=== PATIENT | male | born 1960 | race Caucasian/White ===

== ENCOUNTER 2019-05-17 03:18 | Inpatient (IN) ==
[2019-05-17] MEDS ORDERED: ONDANSETRON INJ 2 MG/ML 2 ML VIAL IV STA (03:42)
[2019-05-17] MEDS ORDERED: SODIUM CHLORIDE 0.9% 1000ML 1,000 ML IV ONE ×2 (03:42→04:54)
[2019-05-17] MEDS ORDERED: HYDROmorphone INJ 1 MG/ML SYRINGE IV STA (03:42)
[2019-05-17] MEDS ORDERED: KETOROLAC 30 MG/ML VIAL IV STA (03:42)
[2019-05-17 03:54] LABS: Basophils # (auto) 0.02 K/uL (0-0.2); Basophils % (auto) 0.2 %; Eosinophils # (auto) 0.41 K/uL (0-0.5); Eosinophils % (auto) 3.7 %; Hematocrit (blood only) 44.8 % (42-52); Hemoglobin 15.4 g/dL (14.0-18.0); Immature Granulocytes # (auto) 0.03 K/uL (0.00-0.02); Immature Granulocytes % (auto) 0.3 %; Lymphocytes # (auto) 2.78 K/uL (1.2-3.4); Lymphocytes % (auto) 24.8 %; Mean Corpuscular Hgb Conc 34.4 g/dL (32-36); Mean Corpuscular Volume 90.7 fL (80-100); Mean Platelet Volume 10.3 fL (7.4-10.4); Monocytes # (auto) 0.92 K/uL (0.11-0.59); Monocytes % (auto) 8.2 %; Neutrophils # (auto) 7.05 K/uL (1.4-6.5); Neutrophils % (auto) 62.8 %; Platelet Count 225 K/uL (130-400); RDW Coefficient of Variation 12.5 % (11.5-14.5); RDW Standard Deviation 41.6 fL (36.4-46.3); Red Blood Count 4.94 M/uL (4.7-6.1); White Blood Count 11.21 K/uL (4.8-10.8)
[2019-05-17 04:12] LABS: Calcium 8.8 mg/dl (8.5-10.1); Creatinine Clr Calc Pharmacy 70.1 ml/min; Est GFR (African American) 72.2; Est GFR (Non-African American) 62.3; Potassium 3.5 mmol/L (3.5-5.1)
[2019-05-17 04:14] LABS: Appearance Urine Clear (Clear); Bilirubin Urine Negative (Negative); Blood Urine Negative (Negative); Color Urine Yellow; Glucose Urine UA Negative (Negative); Ketones Urine Trace (Negative); Leukocyte Esterase Urine Negative (Negative); Nitrite Urine Negative (Negative); Protein Urine Negative (Negative); Specific Gravity Urine 1.028 (1.000-1.030); Urobilinogen Urine Negative (Negative)
--- NOTE | 2019-05-17 06:30 | XRay Report ---
KUB HISTORY: Acute left flank pain left flank pain, h/o stones COMPARISON: Renal ultrasound of same day FINDINGS: The bowel gas pattern is non-obstructive. Moderate volume of formed stool about the ascendi ng colon and hepatic flexure. There is no organomegaly. 5 mm calculus of the inferior pole left kidn ey. The right renal shadow is mostly obscured by bowel gas. No definite ureteral calculi identified. There are a few left-sided pelvic basin calcifications noted measuring up to 3 mm suggestive of proba ble phleboliths. No pneumoperitoneum or pneumatosis. No fracture. IMPRESSION: Left nephrolithiasis without ureteral calculi identified. Electronically signed by: Keven Prasad M.D. 05/17/2019 6:28 AM
[2019-05-17] MEDS ORDERED: MoRPHine SULFATE 4 MG/ML 1 ML CARP\\VIAL IV PRN (06:38)
[2019-05-17] MEDS ORDERED: ONDANSETRON INJ 2 MG/ML 2 ML VIAL IV PRN ×2 (06:38→16:28)
--- NOTE | 2019-05-17 06:42 | Ultrasound Report ---
US renal/blad retro comp HISTORY: 59 years-old Male left flank pain h/o stones acute left-sided flank pain COMPARISON: KUB of same day TECHNIQUE: Multiple real-time sonographic images of the kidneys and urinary bladder were obtained ass essing grayscale appearance, color and spectral flow FINDINGS: The right kidney measures 12.3 x 5.2 x 5.0 cm. Cyst of the superior pole right kidney measures 2.4 x 2.0 x 2.5 cm. Linear area of increased echogenicity is noted along the dependent aspect of this lesio n. No right-sided hydronephrosis or renal calculi identified. Decompressed urinary bladder. Mild to moderate left-sided hydronephrosis with a 1.2 cm echogenicity noted at the level of the urete ropelvic junction. No suspicious mass lesions of the left kidney. IMPRESSION: 1. Mild to moderate left-sided hydronephrosis with 1.2 cm echogenicity of the ureteropelvic junction suggestive of obstructing calculus. 2. 2.5 cm cyst of the superior pole right kidney demonstrates linear increased echogenicity dependent ly suggestive of mild debris or thin internal septation. The above report was generated using voice recognition software. It may contain grammatical, syntax o r spelling errors. Electronically signed by: Keven Prasad M.D. 05/17/2019 6:40 AM
--- NOTE | 2019-05-17 06:45 | Emergency Department Note ---
Entered by Juan Francisco Art acting as a scribe for ED Provider Note Name: Chacorta Bowles Age: 59, male Arrives Via: Walk in Informant: Patient CC: Left flank pain HPI: The patient is a 59 year old male who presents to the emergency department with complaints of constant left flank pain beginning at 2200 yesterday. The patient states that he has a history of previous kidney stones. He notes that his last kidney stone was 8 months ago. He reports that his previous stones are typically small, but he states that he has had to have a lithotripsy once in the past. He notes that his left flank pain radiates into his groin. He also complains of mild nausea but he denies any vomiting. He reports that he is currently on doxycycline for a sinus infection. The patient states that that he was not started on any steroids. ROS: See above HPI for pertinent positives & negatives. A total of 10 systems reviewed and were otherwise negative. Past Medical History: Sinus infection, kidney stone Past Surgical History: Previous lithotripsy Family History: No significant family history Social History: Never smoker, lives with family Home Medications: Doxycycline Allergies: None Physical: Vitals: BP 134/83, Pulse 96 H, Resp 18, Temp 97.5 F L, O2 Sat 91 Exam: GENERAL: Patient is uncomfortable appearing and in moderate distress. EYES: No scleral icterus, unremarkable pupils. ENT: Mucous membranes moist, no nasal congestion. NECK: No masses appreciated, no meningismus, trachea is midline. RESPIRATORY: No dyspnea. Clear to auscultation and equal bilaterally. No wheeze, no rhonchi. CARDIOVASCULAR: Regular rate and rhythm. No murmurs, rubs, gallops appreciated. GASTROINTESTINAL: Abdomen soft, non-tender, no peritonitis. Bowel sounds posit cherrie. No masses appreciated. BACK: No midline tenderness. Vague left CVA tenderness to palpation. EXTREMITIES: Normal motion all extremities, no cyanosis, no edema. NEUROLOGIC: Alert and oriented, no acute motor or sensory deficits, no focal weakness, cranial nerves grossly intact. SKIN: No rash, no jaundice, no diaphoresis. ED Course: Prior Medical Record, Triage/Nursing Notes, Medications, Allergies reviewed by Me 0333: The patient was evaluated in room B12. A complete history and physical exam was performed. 0452: I reevaluated and updated the patient. He states that he is lightheaded. He is mildly diaphoretic on exam. His pain has improved. 0520: Dr. Deirdre Curtis, was paged. 0521: I discussed the patient's case with Dr. Deirdre Curtis. He agrees that the stone will likely not pass. He suggests hospitalist evaluation. He notes that the patient will go to the OR later today. 0526: I rechecked the patient. 0533: Upon reevaluation, the patient is stable. I discussed the findings and the treatment plan with the patient. He expresses agreement and understanding. I spoke with Dr. Parra of the [facility]. The patient will be evaluated for further management. Vital Signs: reviewed and remarkable for wnl Labs: Reviewed and remarkable for wnl, no blood in UA Interventions: Saline Lock, Dilaudid 1mg IV, Toradol 30mg IV, Zofran 4mg IV, NSS Bolus 1 L IV Imaging: X ray results are stated below per my interpretation: KUB: 1 view: No infiltrate, no effusion, normal cardiac border. Radiology results as stated below per my review and the radiologist's interpretation: US RENAL: Moderate left pelviectasis with abrupt off suggested at the UPJ. An echogenic region is suggested at the UPJ measuring 1.2 cm and is presumed to be the calcific density noted in the left abdomen on the plain radiograph. The right kidney demonstrates no calcifications or hydronephrosis. Incidental cortical cyst measuring 2.4 x 2 x 2.5 cm. The bladder is decompressed, limiting evaluation. Radiologist: Abdiaziz Uriarte MD. Consults: 0521: I discussed the patient's case with Dr. Deirdre Curtis. He agrees that the stone will likely not pass. He suggests hospitalist evaluation. He notes that the patient will go to the OR later today. 0533: I reviewed the patient's case with Dr. Parra - [facility]. He will evaluate the patient for further management. Blood pressure: Normal. No Referral necessary Disposition: Hospitalization Differentials: Etiologies such as shingles, pyelonephritis/UTI, renal colic, appendicitis, diverticulitis, mesenteric ischemia, torsion, aortic pathology, infections, inflammatory bowel disease, bowel obstruction, PUD, biliary pathology, as well as others were entertained. Medical Decision Makin yr old male arrives with left flank pain. Quite uncomfortable on arrival and vastly improved with above meds. UA without blood though with obstructing UPJ stone 1.2cm and hydro this is renal related. He is not currently septic. Reviewed with Uro and unlikely to pass this stone. Hospitalized for further management. Impression: Left kidney stone, left hydronephrosis Rick Noe MD The scribe's documentation has been prepared under my direction and personally reviewed by me in its entirety. I confirm that the note above accurately reflects all work, treatment, procedures, and medical decision making performed by me. Impression & Plan Kidney stone on left side, Hydronephrosis, left Past Med/Surg History Medical History Kidney stone Sinus infection Family History Other No significant family history Social History Preferred Language: B[place] Feels Safe at Home: Yes Smoking Status: Never smoker Results & Data Vital Signs Vital Signs - 24 hr 05/17/19 03:27 05/17/19 04:36 05/17/19 05:29 Temperature 36.4 C L Temperature Source Oral Sepsis Recent Fever Within 48 Hours No Sepsis New/Unexplained Change in Mental Status No Sepsis Action Taken by Nursing No Action Required Pulse Rate 89 Pulse Rate [Right Finger] 96 H 97 H Respiratory Rate 36 H 18 20 Blood Pressure 144/85 H Blood Pressure [Left Arm] 134/83 108/65 Blood Pressure Mean 104 Blood Pressure Mean [Left Arm] 100 79 Pulse Oximetry 96 91 97 Oxygen Delivery Method Room Air Room Air Home Medications Current Medication List: was personally reviewed by me Laboratory Data Attestation: I reviewed the patient's lab results. Result diagrams: 05/17/19 03:42 05/17/19 03:42 Lab Results 05/17/19 05/17/19 05/17/19 Range/Units 03:42 03:42 03:42 WBC 11.21 H (4.8-10.8) K/uL RBC 4.94 (4.7-6.1) M/uL Hgb 15.4 (14.0-18.0) g/dL Hct 44.8 (42-52) % MCV 90.7 (80-100) fL MCH 31.2 (25-34) pg MCHC 34.4 (32-36) g/dL RDW Std Deviation 41.6 (36.4-46.3) fL RDW Coeff of Holli 12.5 (11.5-14.5) % Plt Count 225 (130-400) K/uL MPV 10.3 (7.4-10.4) fL Immature Gran % (Auto) 0.3 % Neut % (Auto) 62.8 % Lymph % (Auto) 24.8 % Creek % (Auto) 8.2 % Eos % (Auto) 3.7 % Baso % (Auto) 0.2 % Immature Gran # (Auto) 0.03 H (0.00-0.02) K/uL Neut # (Auto) 7.05 H (1.4-6.5) K/uL Lymph # (Auto) 2.78 (1.2-3.4) K/uL Creek # (Auto) 0.92 H (0.11-0.59) K/uL Eos # (Auto) 0.41 (0-0.5) K/uL Baso # (Auto) 0.02 (0-0.2) K/uL Sodium 141 (136-145) mmol/L Potassium 3.5 (3.5-5.1) mmol/L Chloride 108 H (98-107) mmol/L Carbon Dioxide 26 (21-32) mmol/L Anion Gap 7.0 (3-11) BUN 19 H (7-18) mg/dl Creatinine 1.27 (0.6-1.4) mg/dl Est Cr Clr Drug Dosing 70.1 ml/min Est GFR ( Amer) 72.2 Est GFR (Non-Af Amer) 62.3 BUN/Creatinine Ratio 15.0 (10-20) Glucose 108 H (70-99) mg/dl Calcium 8.8 (8.5-10.1) mg/dl Urine Color Yellow Urine Appearance Clear (Clear) Urine pH 6.0 (4.5-7.5) Ur Specific [place] 1.028 (1.000-1.030) Urine Protein Negative (Negative) Urine Glucose (UA) Negative (Negative) Urine Ketones Trace H (Negative) Urine Blood Negative (Negative) Urine Nitrite Negative (Negative) Urine Bilirubin Negative (Negative) Urine Urobilinogen Negative (Negative) Ur Leukocyte Esterase Negative (Negative) Administered Medications Discontinued Medications Hydromorphone HCl (Dilaudid) 1 mg IV NOW STA Stop: 05/17/19 03:43 Last Admin: 05/17/19 03:46 Dose: 1 mg Documented by: [id number] Sodium Chloride (Nss 1000ml) 1,000 mls @ 999 mls/hr IV .Q1H1M ONE Stop: 05/17/19 04:42 Last Infusion: 05/17/19 04:37 Dose: 0 mls/hr Documented by: [id number] Admin: 05/17/19 03:46 Dose: 999 mls/hr Documented by: [id number] Sodium Chloride (Nss 1000ml) 1,000 mls @ 999 mls/hr IV .Q1H1M ONE Stop: 05/17/19 05:54 Last Infusion: 05/17/19 05:51 Dose: 0 mls/hr Documented by: [id number] Admin: 05/17/19 05:07 Dose: 999 mls/hr Documented by: [id number] Ketorolac Tromethamine (Toradol) 30 mg IV NOW STA Stop: 05/17/19 03:43 Last Admin: 05/17/19 03:46 Dose: 30 mg Documented by: [id number] Ondansetron HCl (Zofran) 4 mg IV NOW STA Stop: 05/17/19 03:43 Last Admin: 05/17/19 03:46 Dose: 4 mg Documented by: [id number] Discharge Plan Visit Data Chief Complaint: Kidney Stone Stated Complaint: KIDNEY STONE ED Provider: Rick Noe Discharge Problem: Kidney stone on left side, Hydronephrosis, left Patient Disposition: Being Evaluated by Hospitalist Discharge Instructions Interventions: ED Discharge Assessment Last Done: 05/17/19 06:22 The scribe's documentation has been prepared under my direction and personally reviewed by me in its entirety. I confirm that the note above accurately reflects all work, treatment, procedures, and medical decision making performed by me.
[2019-05-17] MEDS: SODIUM CHLORIDE 0.9% 1000ML 1,000 ML IV SCH ×2 (06:47→14:07)
--- NOTE | 2019-05-17 09:24 | History and Physical Report ---
DATE OF ADMISSION: 05/17/2019 CHIEF COMPLAINT: Left renal colic. HISTORY OF PRESENT ILLNESS: This is a 59-year-old male with past medical history significant for history of kidney stones, no other significant past medical history, who presents with severe left flank pain started at 10 p.m. last night, it was very severe, 10/10 in severity, he had a history of kidney stones, he came to the ER and imaging studies showed about 1 cm obstructing left renal stone. He denies any fever, chills. No nausea, no chest pain, no shortness of breath, no cough, no headache, no blurred vision, no sore throat, no difficulty swallowing. Appetite is okay.No burning micturition or hematuria. No constipation or diarrhea. Currently resting comfortable and hemodynamically stable. His white count is slightly high. Otherwise, hemodynamically stable. ER physician notified the urology. ALLERGIES: No known drug allergies. PAST MEDICAL HISTORY: As above. PAST SURGICAL HISTORY: Ureteral stent for kidney stone. MEDICATIONS: None. FAMILY HISTORY: Father had pancreatic cancer. Mother had MS. SOCIAL HISTORY: Denies smoking; alcohol rarely. No drug use. The patient is from [place], visiting [facility] for conference. REVIEW OF SYMPTOMS: As per HPI. Rest of review of symptoms is negative. PHYSICAL EXAMINATION: GENERAL: The patient is of moderate build, not in acute distress. VITAL SIGNS: Temperature 36.4, pulse 97, respiratory rate 20, blood pressure 108/65, oxygen 97% on room air. HEENT: No pallor, no icterus. Pupils equal, round, and reactive to light. NECK: No JVD. No neck masses, no carotid bruit. CARDIOVASCULAR: S1, S2 heard, regular rate and rhythm, no murmur, no gallop. RESPIRATORY SYSTEM: Normal AP diameter. No accessory muscle use. No wheezing, no crackles. ABDOMEN: Soft, bowel sounds present. Nontender. No CVA tenderness, no guarding, no rigidity. CENTRAL NERVOUS SYSTEM: Cranial nerves II-XII grossly intact. Nonfocal. EXTREMITIES: No edema, no erythema. LABORATORY DATA: WBC 11.2, hemoglobin 15.4, hematocrit 44.8, platelets 225. Sodium 141, potassium 3.5, chloride 108, bicarbonate 26, BUN 19, creatinine 1.2, serum glucose 108, calcium 8.8. Urinalysis: Trace ketones. KUB, x-ray and renal ultrasound official reading pending. ASSESSMENT AND PLAN: This is a 59-year-old male who presents with left renal colic. 1. Left renal colic with obstructing left kidney stone. The patient has a history of renal stone in the past and stent in the past, afebrile, hemodynamically stable, mild leukocytosis. Urinalysis negative. Urology notified by the ER. We will keep him n.p.o., IV fluids, IV pain medication, IV antiemetics p.r.n. Monitor in the medical floor. 2. Deep venous thrombosis prophylaxis, SCDs. 3. Disposition: Admit to medical floor. Expect discharge home and follow with his family doctor. Level 1 full code. MTDD
[2019-05-17] MEDS ORDERED: TAMSULOSIN HCL 0.4 MG CAP PO SCH ×2 (09:30→21:00)
--- NOTE | 2019-05-17 10:16 | Anesthesiology Consultation ---
Date of Service May 17, 2019 Assessment & Plan (1) Encounter for pre-operative examination: Chart Review Chart Review: Acceptable Risk for Surgery and Patient NOT seen in Pre Admission Testing Consults Requested none History Surgery Operation Date: 05/17/19 07:00 Proposed Procedures p Cystoscopy, Left Stent Placement - Trina Bettencourt MD Height/Weight Height: 5 ft 9 in Weight: 90.5 kg Allergies Allergy/AdvReac Type Severity Reaction Status Date / Time Penicillins Allergy Unknown Verified 05/17/19 06:19 Sulfa (Sulfonamide Allergy Unknown Verified 05/17/19 06:19 Antibiotics) Medications Home Medications Medication Instructions Recorded Confirmed Last Taken cetirizine [Zyrtec] 10 mg PO DAILY 05/17/19 05/17/19 05/16/19 fluticasone propionate 2 spray INTRANASAL DAILY 05/17/19 05/17/19 05/16/19 omeprazole magnesium [Prilosec OTC] 20 mg PO DAILY 05/17/19 05/17/19 05/16/19 Active Medications Generic Name Dose Route Start Last Admin Trade Name Freq PRN Reason Stop Dose Admin Sodium Chloride 1,000 mls @ 125 mls/hr 05/17/19 06:38 05/17/19 06:47 Nss 1000ml IV 06/16/19 06:37 125 mls/hr .Q8H GABY Administration Morphine Sulfate 3 mg 05/17/19 06:38 05/17/19 06:53 Morphine Sulfate IV 05/31/19 06:37 3 mg Q3H PRN Administration Pain Ondansetron HCl 4 mg 05/17/19 06:38 05/17/19 06:53 Zofran IV 06/16/19 06:37 4 mg Q6H PRN Administration Nausea Tamsulosin HCl 0.4 mg 05/17/19 09:30 05/17/19 09:50 Flomax PO 06/16/19 09:29 Not Given DAILY GABY Past Medical History Medical History Kidney stone Sinus infection on doxycycline Past Family History Family History Other No significant family history Past Surgical History Surgical History H/O lithotripsy Social History Smoking Status: Never smoker Do You Dip or Chew Tobacco: No Hx Alcohol Use: Yes Alcohol type: beer, wine and hard liquor alcohol intake frequency: holidays/special occasions only Hx Substance Use: No Physical Exam Vital Signs Last Vital Signs Temp 36.2 C L 05/17/19 06:38 Pulse 97 H 05/17/19 06:38 Resp 18 05/17/19 06:38 BP 117/77 05/17/19 06:38 Pulse Ox 97 05/17/19 06:38 Testing Laboratory Results 05/17/19 03:42 05/17/19 03:42 Urine Color Yellow 05/17/19 03:42 Urine Appearance Clear (Clear) 05/17/19 03:42 Urine pH 6.0 (4.5-7.5) 05/17/19 03:42 Ur Specific [place] 1.028 (1.000-1.030) 05/17/19 03:42 Urine Protein Negative (Negative) 05/17/19 03:42 Urine Glucose (UA) Negative (Negative) 05/17/19 03:42 Urine Ketones Trace (Negative) H 05/17/19 03:42 Urine Nitrite Negative (Negative) 05/17/19 03:42 Ur Leukocyte Esterase Negative (Negative) 05/17/19 03:42
[2019-05-17] MEDS ORDERED: FLUTICASONE PROPIONATE NA SPR 16 GM BTL NAE SCH (10:45)
[2019-05-17] MEDS ORDERED: PANTOprazole 40 MG TAB PO SCH (11:00)
--- NOTE | 2019-05-17 11:19 | Hospitalist Progress Note ---
Date of Service May 17, 2019 Assessment & Plan (1) Renal colic on left side: Pain is controlled with morphine. Oral pain medications offered but patient declined as he does not like the effect of these medications on an empty stomach. Urology is consulted and will discuss treatment options with him today. He has a history of nephrolithiasis and did note his own personal stash of Flomax. He reports taking Flomax last night at home. This was continued at bedtime. Continue IV fluids. (2) Sinus infection: Recently diagnosed as outpatient and he was on doxycycline twice daily. We will continue this in IV form now as he is declining p.o. meds while n.p.o. Continue home Flonase. (3) GERD (gastroesophageal reflux disease): Continue PPI per home regimen. (4) DVT prophylaxis: SCDs in setting of upcoming possible procedure today Full code Disposition-pending urology recommendations Barbara Triana DO [facility] Subjective 59-year-old man with history of nephrolithiasis presented with acute left flank pain was found to have a 1.2 cm obstructing UPJ stone. Pain is well controlled with morphine overnight. He was offered oral pain meds but states that while being n.p.o. this will mess with his stomach. He was incidentally diagnosed with a acute sinus infection in the last 1 to 2 days. He was placed on doxycycline and would like to continue this now. He states he does not do well with oral medications well on an empty stomach so will offer him IV. Discussed home medications with him an updated med reconciliation. At this time he is in a conference at [facility], visiting from [facility]. He is set to fly out sometime this week and is questioning whether or not to get definitive therapy here or at his home. He will discuss this further with urology. Furthermore he has an upcoming vacation in approximately 12 days and he has postoperative concerns, understandably. Currently denies any nausea, gross hematuria, fevers, chills. He has no chest pain, flank pain is controlled, no shortness of breath present. Review of Systems Review of Systems: All systems reviewed & are unremarkable except as noted in HPI & below Physical Exam 2 Physical Exam: CONSTITUTIONAL: WNWD, vitals as above, generally well- appearing EYES: normal conjuctivae, no scleral icterus ENT: oropharynx clear, no maxillary or ethmoid sinus tenderness NECK: trachea midline RESPIRATORY: clear to auscultation bilaterally, no crackles, rales or wheezes, normal respiratory effort CARDIOVASCULAR: regular rate and rhythm, S1 and 2 heard without murmurs, gallops or rubs, no JVD, no peripheral edema GASTROINTESTINAL: soft, nontender, nondistended MUSCULOSKELETAL: strength 5/5 throughout, head is normocephalic and atraumatic SKIN: warm and dry NEUROLOGIC: CN 2-12 grossly intact, no sensory deficit, normal cognition, normal speech, no gross focal deficits. PSYCHIATRIC: alert cooperative and oriented to person, place and time. Results & Data Vital Signs (Past 12 Hours) Vital Signs Temp Pulse Pulse Resp BP BP Pulse Ox 05/17/19 06:38 36.2 C L 97 H 18 117/77 97 05/17/19 06:21 103 H 20 96/57 L 97 05/17/19 05:29 97 H 20 108/65 97 05/17/19 04:36 96 H 18 134/83 91 05/17/19 03:27 36.4 C L 89 36 H 144/85 H 96 Laboratory Results Short CBC 05/17/19 Range/Units 03:42 WBC 11.21 H (4.8-10.8) K/uL Hgb 15.4 (14.0-18.0) g/dL Hct 44.8 (42-52) % Plt Count 225 (130-400) K/uL BMP 05/17/19 03:42 Sodium 141 Potassium 3.5 Chloride 108 H Carbon Dioxide 26 BUN 19 H Creatinine 1.27 Glucose 108 H Calcium 8.8 Urine 05/17/19 Range/Units 03:42 Urine Color Yellow Urine Appearance Clear (Clear) Urine pH 6.0 (4.5-7.5) Ur Specific [place] 1.028 (1.000-1.030) Urine Protein Negative (Negative) Urine Glucose (UA) Negative (Negative) Medications Administered Current Inpatient Medications Acetaminophen (Tylenol) 650 mg PO Q4H PRN PRN Reason: pain/fever Stop: 06/16/19 06:37 Fluticasone Propionate (Flonase) 2 sprays SENIA DAILY GABY Stop: 06/16/19 10:44 Sodium Chloride (Nss 1000ml) 1,000 mls @ 125 mls/hr IV .Q8H GABY Stop: 06/16/19 06:37 Last Admin: 05/17/19 06:47 Dose: 125 mls/hr Documented by: Doxycycline Hyclate 100 mg/ (Dextrose) 110 mls @ 50 mls/hr IV BID GABY Stop: 05/27/19 10:59 Morphine Sulfate (Morphine Sulfate) 3 mg IV Q3H PRN PRN Reason: Pain Stop: 05/31/19 06:37 Last Admin: 05/17/19 06:53 Dose: 3 mg Documented by: Ondansetron HCl (Zofran) 4 mg IV Q6H PRN PRN Reason: Nausea Stop: 06/16/19 06:37 Last Admin: 05/17/19 06:53 Dose: 4 mg Documented by: Pantoprazole Sodium (Protonix) 40 mg PO DAILY GABY Stop: 06/16/19 10:59 Tamsulosin HCl (Flomax) 0.4 mg PO HS GABY Stop: 06/16/19 20:59
[2019-05-17] MEDS: DOXYCYCLINE HYCLATE 100 MG in DEXTROSE 5% 100 ML IV SCH ×2 (11:49→20:01)
[2019-05-17] MEDS ORDERED: MIDAZOLAM HCL 1 MG/ML 2ML VIAL ONE (16:16)
[2019-05-17] MEDS ORDERED: fentaNYL citrate 100 MCG/2 ML VIAL ONE (16:16)
[2019-05-17] MEDS ORDERED: OXYMETAZOLINE 0.05% 30 ML BTL STA (16:27)
[2019-05-17] MEDS ORDERED: ePHEDrine sulfate 50 MG/ML AMP IV PRN (16:28)
[2019-05-17] MEDS ORDERED: ATROPINE SULFATE 0.1 MG/ML 10ML SYR IV PRN (16:28)
[2019-05-17] MEDS ORDERED: fentaNYL citrate 100 MCG/2 ML VIAL IV PRN (16:28)
[2019-05-17] MEDS ORDERED: OXYMETAZOLINE 0.05% 30 ML BTL ONE (16:29)
[2019-05-17] MEDS ORDERED: GENTAMICIN CONSULT ACTIVE PRN (16:50)
[2019-05-17] MEDS ORDERED: GENTAMICIN SULFATE 40 MG/ML 20 ML VIAL IV STA (16:50)
--- NOTE | 2019-05-17 16:56 | Urology Consultation ---
Date of Consultation May 17, 2019 Assessment & Plan (1) Renal colic on left side: 12mm left upj stone I suspect it is tipping in and out of upj and kidney. Offered observation stent uscope with laser litho he opts for stent I am uncertain why he had such terrible bleeding after last stent so will carefully place a flexible cystoscope this time. 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 He has had many stones and began with classic left renal colic. He had pain meds in ER and has been pain free since. He has KUB which did not show any stone at the upj and a small sotne in the left lower pole. He had an ultrasound which showed left hydronephrosis and a 12mm left upj stone. He has had other stones and has passed most. He had a stent placed once 5 years ago and had brisk hematuria for day, was on CBI and needed 2 units blood transfusion. He never did get an explanation for that. He does not bleed excessively in daily life. Had face an dtoe skin lesions removed with a free flap graft to toe. no problems Allergies Allergy/AdvReac Type Severity Reaction Status Date / Time Penicillins Allergy Unknown Verified 05/17/19 06:19 Sulfa (Sulfonamide Allergy Unknown Verified 05/17/19 06:19 Antibiotics) Home Medications Home Medications Medication Instructions Recorded Confirmed Type cetirizine [Zyrtec] 10 mg PO DAILY 05/17/19 05/17/19 History doxycycline monohydrate 100 mg PO BID 05/17/19 05/17/19 History fluticasone propionate 2 spray INTRANASAL DAILY 05/17/19 05/17/19 History omeprazole magnesium [Prilosec OTC] 20 mg PO DAILY 05/17/19 05/17/19 History Patient History Medical History Kidney stone Sinus infection on doxycycline Surgical History H/O lithotripsy Family History Other No significant family history Social History 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 His maternal grandfather had a dose of sulfa for a stone attack and from the allergic reaction. His mother had non life threatening allergies to many antibiotics including penicillin. ROS- no chest pain, + sinus pressure, no nausea or emesis, no shortness of breath no constipation, no seizures, on doxycycline for sinus infection mild. Physical Exam Constitutional: WD/WN, vitals as above + thin; no acute distress Respiratory: normal respiratory effort, lungs clear to auscultation no cough Cardiovascular: RRR, no murmur, no edema Gastrointestinal (Abdomen): normal bowel sounds, soft, nontender, no hepatospl enomegaly Skin: no rashes, warm and dry Psychiatric: A+Ox3, euthymic affect Results & Data Vital Signs (Past 12 Hours) Vital Signs Temp Pulse Resp BP Pulse Ox 05/17/19 15:45 36.5 C 102 H 18 120/74 98 05/17/19 15:07 36.5 C 93 H 18 119/75 94 05/17/19 06:38 36.2 C L 97 H 18 117/77 97 05/17/19 06:21 103 H 20 96/57 L 97 05/17/19 05:29 97 H 20 108/65 97
[2019-05-17] MEDS ORDERED: GENTAMICIN SULFATE 240 MG in DEXTROSE 5% 100 ML IV ONE (17:00)
[2019-05-17] MEDS ORDERED: DEXAMETHASONE SOD INJ 4 MG/ML VIAL ONE (17:10)
[2019-05-17] MEDS ORDERED: ONDANSETRON INJ 2 MG/ML 2 ML VIAL ONE (17:10)
[2019-05-17] MEDS ORDERED: PROPOFOL IV EMULSION 10 MG/ML 20 ML VIAL IV ONE ×3 (17:10→17:38)
[2019-05-17] MEDS ORDERED: LIDOCAINE HCL 2% 2 ML VIAL/AMP(20MG/ML) INFIL ONE (17:10)
[2019-05-17] MEDS ORDERED: BELLADONNA/OPIUM SUPP 60 MG SUPP PR ONE (17:35)
[2019-05-17] MEDS ORDERED: BELLADONNA/OPIUM SUPP 60 MG SUPP PR PRN (18:07)
--- NOTE | 2019-05-17 18:07 | Operative Report ---
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 His genitals were prepped and draped in sterile fashion. Time out held with team. I placed a 18 fr flexible cystoscope to bladder. The urethra is remarkable for a very thin 20 fr proximal bulbar stricture which is easily bypassed with flexible cystoscope. The prostate is enlarged and nearly occludes the prostatic urethra. The bladder neck is elevated. The UOs are normal location but small raised circular shape. I placed a road runner wire up left ureter and into kidney easily. I attempted to place a 6 fr 24 centimeter stent but it wont pass the UO. I was able to place a 5 fr open ended catheter over the wire and into the left kidney. I do believe a can see a faint outline of a large square upj stone. I switched wires to a stiff wire and observed brisk efflux of clear urine from the left kidney via the 5 fr open ended indicating hydro drip. I placed the stiff wire. I then placed a 4.8 Fr 24 centimeter double J stent easily over the wire to the kidney. I positioned the distal coil with 3/4 of a full turn in bladder and a full 360 degree coil in the kidney. The stent did drift down to the UPJ with a full coil after a few minutes. I replaced the flexible cystoscope to ensure there was brisk drainage through the stent indicating the coil remains above the stone. The stone is not well seen on fluoro. I used suction thru the flex cystoscope to drain the bladder. There was brisk efflux through the stent end and side holes. There was no bleeding. I left bladder empty and concluded case. I placed a belladonna and opium suppository for post-op pain. He transferred to recovery under my escort, in stable condition. 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 Any exceptions are noted below.
[2019-05-17] MEDS ORDERED: IBUPROFEN 600 MG TAB PO PRN (18:19)
--- NOTE | 2019-05-17 18:24 | Anesthesiology Progress Note ---
Date of Service May 17, 2019 Anesthesia Post Procedure Vital Signs Vital Signs: Temp Pulse Pulse Pulse Resp BP BP 05/17/19 18:15 36.5 C 80 20 124/88 05/17/19 18:05 80 26 H 127/85 05/17/19 17:56 36.5 C 91 H 17 100/70 05/17/19 15:45 36.5 C 102 H 18 120/74 05/17/19 15:07 36.5 C 93 H 18 119/75 05/17/19 06:38 36.2 C L 97 H 18 117/77 05/17/19 06:21 103 H 20 96/57 L 05/17/19 05:29 97 H 20 108/65 05/17/19 04:36 96 H 18 134/83 05/17/19 03:27 36.4 C L 89 36 H 144/85 H Pulse Ox 05/17/19 18:15 98 05/17/19 18:05 100 05/17/19 17:56 99 05/17/19 15:45 98 05/17/19 15:07 94 05/17/19 06:38 97 05/17/19 06:21 97 05/17/19 05:29 97 05/17/19 04:36 91 05/17/19 03:27 96 Pain Intensity Left Flank: Pain Intensity: 2 Transfer of Care Handoff Completed per policy Notes Mental Status: alert / awake / arousable and participated in evaluation Patient Amnestic to Procedure: Yes Nausea / Vomiting: adequately controlled Pain: adequately controlled Airway Patency, RR, SpO2: stable & adequate BP & HR: stable & adequate Hydration State: stable & adequate Anesthetic Complications: no major complications apparent
[2019-05-17] MEDS: ACETAMINOPHEN 325 MG TAB PO PRN (18:46)
--- NOTE | 2019-05-17 19:01 | Fluoroscopy Report ---
FL retrograde includes kub CLINICAL HISTORY: LEFT STONE/ STENT PLACEMENT COMPARISON STUDY: None FLUOROSCOPY TIME: 1 minute 11 seconds NUMBER OF FLUOROSCOPIC IMAGES: 5 FINDINGS: Image intensifier was utilized for left ureteral stent placement. IMPRESSION: Image intensifier was utilized for left ureteral stent placement. The above report was generated using voice recognition software. It may contain grammatical, syntax or spelling errors. Electronically signed by: Yung Ordaz M.D. 05/17/2019 7:00 PM
[2019-05-17] MEDS: OXYCODONE HCL IR 5 MG TAB (IMMEDIATE RELEASE) PO PRN (19:51)
[2019-05-18] MEDS: SODIUM CHLORIDE 0.9% 1000ML 1,000 ML IV SCH (01:34)
[2019-05-18] MEDS ORDERED: Nursing to Pharmacy Communication ONE (01:44)
[2019-05-18] MEDS: OXYCODONE HCL IR 5 MG TAB (IMMEDIATE RELEASE) PO PRN (03:00)
[2019-05-18] MEDS: ACETAMINOPHEN 325 MG TAB PO PRN (03:00)
[2019-05-18 05:59] LABS: Hemoglobin 13.1 g/dL (14.0-18.0); Immature Granulocytes # (auto) 0.03 K/uL (0.00-0.02); Immature Granulocytes % (auto) 0.3 %; Lymphocytes # (auto) 0.89 K/uL (1.2-3.4); Lymphocytes % (auto) 9.8 %; Mean Corpuscular Hgb Conc 33.6 g/dL (32-36); Mean Corpuscular Volume 92.4 fL (80-100); Mean Platelet Volume 9.9 fL (7.4-10.4); Monocytes # (auto) 0.31 K/uL (0.11-0.59); Monocytes % (auto) 3.4 %; Neutrophils # (auto) 7.89 K/uL (1.4-6.5); Neutrophils % (auto) 86.5 %; Platelet Count 183 K/uL (130-400); RDW Coefficient of Variation 12.6 % (11.5-14.5); RDW Standard Deviation 42.4 fL (36.4-46.3); Red Blood Count 4.22 M/uL (4.7-6.1); White Blood Count 9.12 K/uL (4.8-10.8)
[2019-05-18 06:31] LABS: BUN Creatinine Ratio 12.5 (10-20); Calcium 7.8 mg/dl (8.5-10.1); Creatinine Clr Calc Pharmacy 111.9 ml/min; Est GFR (African American) 114.3; Est GFR (Non-African American) 98.7; Magnesium 2.1 mg/dl (1.8-2.4)
--- NOTE | 2019-05-18 07:47 | Urology Progress Note ---
Date of Service May 18, 2019 Assessment & Plan (1) Renal colic on left side: pos #1 cysto left stent having grossly bloody urine but not to the degree he did 5 years ago feels comfortable he will continue to void without obstruction. He plans to have stone treated back in [place] when he gets back. discharge this am with oxycodone and flomax and he might want to try azo for dysuria Present on Admission?: Yes Subjective patient has dysuria. He has tried narcotic and tylenol with no help. He has bloody urine with some clots but none thick. Not sure if getting better or staying the same. Tolerated jello last night No left flank pain. Urinating frequently. Wants to go to his meeting nolberto. Review of Systems Review of Systems: no chest pain, no weakness or dizziness, no fevers, no nausea, no emesis, ++ dysuria. Physical Exam Constitutional: WD/WN, vitals as above + well hydrated and + thin; no acute distress Gastrointestinal (Abdomen): normal bowel sounds, soft, nontender, no hepatosplenomegaly Psychiatric: A+Ox3, euthymic affect Results & Data Vital Signs (Past 12 Hours) Vital Signs Temp Pulse Resp BP Pulse Ox 05/18/19 07:19 36.5 C 106 H 18 136/88 94 05/18/19 03:07 36.6 C 90 18 128/77 95 05/17/19 23:28 36.6 C 84 18 118/75 94 05/17/19 21:33 36.9 C 89 16 125/77 95 05/17/19 20:37 36.5 C 89 16 147/87 H 97
--- NOTE | 2019-05-18 08:01 | Discharge Summary ---
Date of Service May 18, 2019 Admission HPI Per Admitting Provider Patient had acute renal colic 10pm Thursday May 16, 2019 and presented to ER. Imaging with renal ultrasound showed a 12mm left upj stone with hydro. KUB showed only a 4-5mm left lower pole stone. He was admitted for pain control and stone surgical therapy. He had other stones through the years but most passed spontaneously. Admission Exam (Per Admitting) Constitutional WD/WN, vitals as above + well hydrated and + thin; no acute distress Respiratory normal respiratory effort, lungs clear to auscultation no cough Cardiovascular RRR, no murmur, no edema Gastrointestinal (Abdomen) normal bowel sounds, soft, nontender, no hepatosplenomegaly Skin no rashes, warm and dry Psychiatric A+Ox3, euthymic affect Discharge Data Consultations 05/17/19 05:34 Consult Urology Stat ED Decision to Admit Stat Procedures Performed Operation Date: 05/17/19 07:00 Actual Procedures p Cystoscopy, Left ureteral Stent Placement - Trina Bettencourt MD Hospital Course (1) Renal colic on left side: He was pain free the first night Friday into Friday. he was taken to OR Friday at 5pm and had a cystoscopy with left stent placement. He had minor aaliyah turia post op without any large clots or obstruction. He remained pain free. He plans to have stone treated back in [place] when he gets back. discharge this am with oxycodone and flomax and he might want to try azo for dysuria Discharge Instructions will need to have stone treated within 30 days. may use azo for dysuria take flomax daily.
--- NOTE | 2019-05-18 08:35 | Communication Note ---
Date of Service: May 18, 2019 I saw the patient during the discharge process. He was eating and in a rodriguez to get to a conference so no exam was performed. He reported no pain but +dysuria. We discussed Azo which he will try when he returns to [place] as he is travelling and doesn't want to stain his clothing. Dr. Bettencourt did the DC and DC summary this morning. He will continue on the doxycycline for his previously diagnosed sinus infection. He reports feeling improved on this. He was discharged in stable condition with close primary care follow-up recommended. DO Kong
--- NOTE | 2019-05-18 09:27 | Anesthesiology Progress Note ---
Date of Service May 18, 2019 Anesthesia Post Procedure Vital Signs Vital Signs: Temp Pulse Pulse Pulse Resp BP Pulse Ox 05/18/19 08:09 36.5 C 80 106 H 18 136/88 94 05/18/19 07:19 36.5 C 106 H 18 136/88 94 05/18/19 03:07 36.6 C 90 18 128/77 95 05/17/19 23:28 36.6 C 84 18 118/75 94 05/17/19 21:33 36.9 C 89 16 125/77 95 05/17/19 20:37 36.5 C 89 16 147/87 H 97 05/17/19 19:40 36.4 C L 84 16 130/78 97 05/17/19 18:30 36.5 C 82 19 136/87 97 05/17/19 18:15 36.5 C 80 20 124/88 98 05/17/19 18:05 80 26 H 127/85 100 05/17/19 17:56 36.5 C 91 H 17 100/70 99 05/17/19 15:45 36.5 C 102 H 18 120/74 98 05/17/19 15:07 36.5 C 93 H 18 119/75 94 Pain Intensity Left Flank: Pain Intensity: 0 Penis: Pain Intensity: 0 Notes Mental Status: alert / awake / arousable Patient Amnestic to Procedure: Yes Nausea / Vomiting: adequately controlled Pain: adequately controlled Airway Patency, RR, SpO2: stable & adequate BP & HR: stable & adequate Hydration State: stable & adequate Anesthetic Complications: no major complications apparent
== END 2019-05-18 08:59 | disposition home or self-care (01) | DRG 661 ==
LOC: ED 03:18 → SUATTDRO 05:55 → 3N 05:55